=== PATIENT | female | born 1950 | race African-American/Black ===

== ENCOUNTER 2016-06-24 22:51 | Emergency (ER) | payer OTHER ==
[~2016-06-24] VITALS: Ht 180.3 cm; Wt 74.8 kg
[2016-06-24] MEDS ORDERED: FENTANYL PF 100 MCG/2 ML VIAL. IV PRN (23:15)
[2016-06-24] MEDS ORDERED: IV NORMAL SALINE 1000ML BAG 1,000 ML IV SCH (23:15)
[2016-06-24] MEDS ORDERED: ONDANSETRON PF 4 MG/2 ML VIAL. IV ONE (23:15)
--- NOTE | 2016-06-24 23:16 | PHYS DOC ---
Past Medical History Past Medical History: Arthritis Past Surgical History: No Surgical History Alcohol Use: None Drug Use: None Adult General Chief Complaint Chief Complaint: HYPERTENSION HPI HPI Patient is a 65 year old female who presents with complaint of shortness breath and cough. Patient states that she is a cough and nasal congestion for approximately 3 weeks. Patient states that her symptoms started getting worse tonight. Patient also noted that she had watering of her eyes, nausea, vomiting , and lower abdominal pain. The patient was brought to the emergency department by EMS who noted initially that the patient's blood pressure was 243/140. Patient's blood pressure has decreased to 166/99 at triage. Patient states that she has been having chills but denies fevers. Patient has had productive cough of brown sputum. Patient states that she is having soreness along the sides of her neck and bilateral shoulders and rates her pain currently as 9 out of 10. Patient has not taken any medications to help with symptoms at this time. Review of Systems Review of Systems Constitutional: Chills [] Eyes: Denies change in visual acuity, redness, or eye pain [] HENT: Nasal congestion, sore throat [] Respiratory: Cough, shortness of breath [] Cardiovascular: Chest pain [] GI: Abdominal pain, nausea, vomiting, denies bloody stools or diarrhea [] : Denies dysuria or hematuria [] Musculoskeletal: Neck and bilateral shoulder pain [] Integument: Denies rash or skin lesions [] Neurologic: Denies headache, focal weakness or sensory changes [] Endocrine: Denies polyuria or polydipsia [] Current Medications Current Medications Current Medications Medications (Trade) Dose Ordered Sig/Andrew Start Time Stop Time Status Last Admin Dose Admin Fentanyl Citrate (Fentanyl 2ml Vial) 50 mcg PRN Q15MIN PRN 06/24/16 23:15 06/25/16 23:14 06/24/16 23:23 50 MCG Ondansetron HCl (Zofran) 4 mg 1X ONCE 06/24/16 23:15 06/24/16 23:16 DC 06/24/16 23:23 4 MG Sodium Chloride (Iv Sodium Chloride 0.9% 1000ml Bag) 1,000 ml @ 1,000 mls/hr Q1H 06/24/16 23:15 06/25/16 00:14 06/24/16 23:23 1,000 MLS/HR Allergies Allergies Allergies Coded Allergies Type Severity Reaction Last Updated Verified tramadol Allergy Unknown 06/24/16 Yes Physical Exam Physical Exam Constitutional: Alert, afebrile, appears ill. [] HENT: Normocephalic, atraumatic, bilateral external ears normal, oropharynx moist, no oral exudates, nasal mucosal edema. [] Eyes: PERRLA, EOMI, conjunctiva normal, no discharge. [] Neck: Normal range of motion, bilateral paraspinous muscle tenderness to palpation, supple, no stridor. [] Cardiovascular: Tachycardia, regular rhythm, no murmur [] Lungs & Thorax: None restricted air movement bilaterally, no wheezes, no rales [ ] Abdomen: Bowel sounds normal, soft, periumbilical and right upper and lower quadrant tenderness to palpation, no masses, no pulsatile masses. [] Skin: Warm, dry, no erythema, no rash. [] Back: No tenderness, no CVA tenderness. [] Extremities: No tenderness, no cyanosis, no clubbing, ROM intact, no edema. [] Neurologic: Alert and oriented X 3, normal motor function, normal sensory function, no focal deficits noted. [] Current Patient Data Vital Signs Vital Signs Date Time Temp Pulse Resp B/P Pulse Ox O2 Delivery O2 Flow Rate FiO2 06/24/16 23:48 92 20 175/98 100 Room Air 06/24/16 22:52 98.4 98.4 Lab Values Laboratory Tests Test 06/24/16 23:15 White Blood Count 13.2x10^3/uL (4.0-11.0) H Red Blood Count 4.70x10^6/uL (3.50-5.40) Hemoglobin 14.1g/dL (12.0-15.5) Hematocrit 42.5% (36.0-47.0) Mean Corpuscular Volume 90fL (79-100) Mean Corpuscular Hemoglobin 30pg (25-35) Mean Corpuscular Hemoglobin Concent 33g/dL (31-37) Red Cell Distribution Width 14.3% (11.5-14.5) Platelet Count 277x10^3/uL (140-400) Neutrophils (%) (Auto) 73% (31-73) Lymphocytes (%) (Auto) 18% (24-48) L Monocytes (%) (Auto) 7% (0-9) Eosinophils (%) (Auto) 1% (0-3) Basophils (%) (Auto) 0% (0-3) Neutrophils # (Auto) 9.7x10^3uL (1.8-7.7) H Lymphocytes # (Auto) 2.4x10^3/uL (1.0-4.8) Monocytes # (Auto) 1.0x10^3/uL (0.0-1.1) Eosinophils # (Auto) 0.1x10^3/uL (0.0-0.7) Basophils # (Auto) 0.0x10^3/uL (0.0-0.2) Sodium Level 139mmol/L (136-145) Potassium Level 3.1mmol/L (3.5-5.1) L Chloride Level 99mmol/L (98-107) Carbon Dioxide Level 26mmol/L (21-32) Anion Gap 14 (6-14) Blood Urea Nitrogen 13mg/dL (7-20) Creatinine 0.9mg/dL (0.6-1.0) Estimated GFR (Cockcroft-Gault) 76.5 BUN/Creatinine Ratio 14 (6-20) Glucose Level 268mg/dL (70-99) H Lactic Acid Level 1.5mmol/L (0.4-2.0) Calcium Level 9.1mg/dL (8.5-10.1) Total Bilirubin 0.5mg/dL (0.2-1.0) Aspartate Amino Transferase (AST) 30U/L (15-37) Alanine Aminotransferase (ALT) 29U/L (14-59) Alkaline Phosphatase 198U/L (46-116) H Troponin I Quantitative < 0.017ng/mL (0.000-0.055) Total Protein 7.5g/dL (6.4-8.2) Albumin 4.1g/dL (3.4-5.0) Albumin/Globulin Ratio 1.2 (1.0-1.7) Laboratory Tests 06/24/16 23:15 Laboratory Tests 06/24/16 23:15 EKG EKG Interpreted by me: Heart rate 106, sinus tachycardia, normal intervals, normal axis, no acute ST/T-wave abnormalities present [] Radiology/Procedures Radiology/Procedures One view AP chest x-ray interpreted by me: No infiltrate, no effusions, normal cardiac silhouette [] Course & Med Decision Making Course & Med Decision Making Pertinent Labs and Imaging studies reviewed. (See chart for details) Patient was given IV fluids, Zofran, and fentanyl. Patient found to have elevated blood sugar of 268. Patient does not report history of diabetes. Due to significantly elevated blood sugar I suspect the patient is a type II diabetic. The patient's heart rate otherwise has improved with IV fluids. The patient's respiratory symptoms are likely a combination of seasonal allergies and possible viral illness. Speaking with the patient, I recommended that the patient started on metformin treatment for her blood sugar. Patient states that her blood pressure was checked 2 weeks ago and she was told that it was not elevated at that time. I advised that the patient continue to monitor her blood pressure and have this followed up as outpatient. The patient will be provided with Randolph to help with pain from arthritis. Strongly recommended that patient follow-up with your primary doctor in the next 1-2 weeks. Advised return to emergency department for any worsening symptoms. Patient voiced understanding and in agreement with treatment plan. Dragon Disclaimer Dragon Disclaimer This electronic medical record was generated, in whole or in part, using a voice recognition dictation system. Departure Departure Impression: Primary Impression: Hyperglycemia Additional Impressions: Nasal congestion Seasonal allergies Hypertension Arthritis Dehydration Disposition: 01 HOME, SELF-CARE Condition: IMPROVED Referrals: NO PCP (PCP) Patient Instructions: Allergic Rhinitis, Arthritis, Nonspecific, Hyperglycemia , Hypertension Additional Instructions: Follow-up with your primary doctor in 1 week. Return to the emergency department for any worsening symptoms. Scripts Hydrocodone/Apap 5-325 (Randolph 5-325 Tablet)1 Each Tablet1-2 Tab PO Q4-6HRS PRN PAIN #20 TAB Prov:EARL SÁNCHEZ MD 06/25/16 Metformin Hcl 500 Mg [id number] Mg PO BIDWMEALS ANTI-DIABETIC #60 TAB Ref 0 Prov:EARL SÁNCHEZ MD 06/25/16 Problem Qualifiers Additional Impressions: Seasonal allergies Allergic rhinitis trigger: unspecified Qualified Code: J30.2 - Other seasonal allergic rhinitis Hypertension Hypertension type: essential hypertension Qualified Code: I10 - Essential ( primary) hypertension EARL SÁNCHEZ MD Jun 24, 2016 23:16
[2016-06-24 23:26] LABS: BASO % 0 % (0-3); EOS % 1 % (0-3); HEMATOCRIT 42.5 % (36.0-47.0); HEMOGLOBIN 14.1 g/dL (12.0-15.5); LYMPH # 2.4 x10^3/uL (1.0-4.8); LYMPH % 18 % (24-48); MEAN CORPUSCULAR HEMOGLOBIN 30 pg (25-35); MEAN CORPUSCULAR HGB CONC 33 g/dL (31-37); MEAN CORPUSCULAR VOLUME 90 fL (79-100); MONO % 7 % (0-9); NEUT % 73 % (31-73); PLATELET COUNT 277 x10^3/uL (140-400); RED CELL DISTRIBUTION WIDTH 14.3 % (11.5-14.5); WHITE BLOOD COUNT 13.2 x10^3/uL (4.0-11.0)
[2016-06-24 23:39] LABS: CALCIUM 9.1 mg/dL (8.5-10.1); CREATININE 0.9 mg/dL (0.6-1.0); GFR 76.5; POTASSIUM 3.1 mmol/L (3.5-5.1)
[2016-06-24 23:45] LABS: ALBUMIN 4.1 g/dL (3.4-5.0); ALBUMIN/GLOBULIN RATIO 1.2 (1.0-1.7); TOTAL BILIRUBIN 0.5 mg/dL (0.2-1.0); TOTAL PROTEIN 7.5 g/dL (6.4-8.2)
[2016-06-25 00:14] LABS: CKMB INDEX 1.4 % (0-4); CKMB MASS 9.4 ng/mL (0.0-3.6)
[2016-06-25] MEDS ORDERED: HYDR-971 PO (00:15)
[2016-06-25] MEDS ORDERED: METF500T4 PO (00:15)
[2016-06-25] MEDS ORDERED: HYDROCODONE/APAP 5/325MG TABLET. PO ONE (00:30)
[2016-06-25] MEDS ORDERED: POTASSIUM CHLORIDE 20 MEQ TABLET.ER. PO ONE (00:30)
[2016-06-25 00:35] VITALS: BP 186/101
--- NOTE | 2016-06-25 01:24 | EKG ---
[facility] [address] [place] [address] Test Date: 2016-06-24 Test Time: 23:24:23 Pat Name: NIDIA COCHRAN Department: Room: Gender: F Payroll Consultant: : [id number] Requested By: EARL SÁNCHEZ Order Number: [id number] Reading MD: Sukhi Godwin Measurements Intervals [place] Rate: 106 P: 16 NH: 162 QRS: 29 QRSD: 88 T: 42 QT: 346 QTc: 461 Interpretive Statements SINUS TACHYCARDIA PRIOR SOM-SEPTAL INFARCT NON-SPECIFIC ST/T CHANGES Electronically Signed On 06-26-2016 8:19:10 CDT by Sukhi Godwin
--- NOTE | 2016-06-25 08:18 | RAD ---
Portable chest, 06/24/2016: History: Cough, shortness of breath The heart size and pulmonary vascularity are normal. No pulmonary infiltrates are seen. There is no evidence of pleural fluid. Mild spurring is present in the spine. IMPRESSION: No acute cardiopulmonary abnormality is detected.
== END 2016-06-25 00:45 | disposition home or self-care (01) ==
LOC: ER 23:51
DX: J30.2 Other seasonal allergic rhinitis (principal); R73.9 Hyperglycemia, unspecified; I10 Essential (primary) hypertension; M19.90 Unspecified osteoarthritis, unspecified site; E86.0 Dehydration; M25.511 Pain in right shoulder; R11.2 Nausea with vomiting, unspecified; R10.33 Periumbilical pain; R10.11 Right upper quadrant pain; R10.31 Right lower quadrant pain; Z88.6 Allergy status to analgesic agent
CPT/HCPCS: 36415; 71010; 80053; 82553; 83605; 83880; 84484; 85027; 87040; 93005; 96361; 96374; 96375; 99285; J2405; J3010; J7030

== ENCOUNTER 2018-09-20 18:54 | Emergency (ER) | payer MEDICAID, OTHER ==
[~2018-09-20] VITALS: Ht 180.3 cm; Wt 72.6 kg
[~2018-09-20 18:54] MED LIST: HYDR-3164 PO; METF500T16 PO
[2018-09-20 19:36] VITALS: BP 158/76
[2018-09-20] MEDS ORDERED: LIDOCAINE 1% PF 2 ML VIAL. INJ ONE (20:30)
[2018-09-20] MEDS ORDERED: DIPHTH,PERTUSS(ACELL),TET TOX 0.5 ML DISP.SYRIN. VAX IM ONE (20:30)
--- NOTE | 2018-09-20 21:21 | PHYS DOC ---
Past Medical History Past Medical History: Hypertension Additional Past Medical Histor: CARPAL TUNNEL Past Surgical History: Other Additional Past Surgical Histo: HERNIA Alcohol Use: None Drug Use: None Adult General Chief Complaint Chief Complaint: LACERATION/AVULSION HPI HPI Patient is a 68 year old [f__sex] who presents with [] Review of Systems Review of Systems Constitutional: Denies fever or chills [] Eyes: Denies change in visual acuity, redness, or eye pain [] HENT: Denies nasal congestion or sore throat [] Respiratory: Denies cough or shortness of breath [] Cardiovascular: No additional information not addressed in HPI [] GI: Denies abdominal pain, nausea, vomiting, bloody stools or diarrhea [] : Denies dysuria or hematuria [] Musculoskeletal: Denies back pain or joint pain [] Integument: Denies rash or skin lesions [] Neurologic: Denies headache, focal weakness or sensory changes [] Endocrine: Denies polyuria or polydipsia [] All other systems were reviewed and found to be within normal limits, except as documented in this note. Current Medications Current Medications Current Medications Medications (Trade) Dose Ordered Sig/Andrew Start Time Stop Time Status Last Admin Dose Admin Diphtheria/ Tetanus/Acell Pertussis (Boostrix) 0.5 ml ONCE ONCE 09/20/18 20:30 09/20/18 20:31 DC 09/20/18 20:50 0.5 ML Lidocaine HCl (Xylocaine-Mpf 1% 2ml Vial) 4 ml 1X ONCE 09/20/18 20:30 09/20/18 20:31 DC 09/20/18 20:49 4 ML Allergies Allergies Allergies Coded Allergies Type Severity Reaction Last Updated Verified tramadol Allergy Unknown 06/24/16 Yes Physical Exam Physical Exam Constitutional: Well developed, well nourished, no acute distress, non-toxic appearance. [] HENT: Normocephalic, atraumatic, bilateral external ears normal, oropharynx moist, no oral exudates, nose normal. [] Eyes: PERRLA, EOMI, conjunctiva normal, no discharge. [] Neck: Normal range of motion, no tenderness, supple, no stridor. [] Cardiovascular:Heart rate regular rhythm, no murmur [] Lungs & Thorax: Bilateral breath sounds clear to auscultation [] Abdomen: Bowel sounds normal, soft, no tenderness, no masses, no pulsatile masses. [] Skin: Warm, dry, no erythema, no rash. [] Back: No tenderness, no CVA tenderness. [] Extremities: No tenderness, no cyanosis, no clubbing, ROM intact, no edema. [] Neurologic: Alert and oriented X 3, normal motor function, normal sensory function, no focal deficits noted. [] Psychologic: Affect normal, judgement normal, mood normal. [] Current Patient Data Vital Signs Vital Signs Date Time Temp Pulse Resp B/P (MAP) Pulse Ox O2 Delivery O2 Flow Rate FiO2 09/20/18 19:36 98.4 105 18 158/76 (103) 100 Room Air 98.4 EKG EKG [] Radiology/Procedures Radiology/Procedures Laceration Repair by me: 2100 Anesthesia: 1% lidocaine locally 3mL Location: Distal tip lt index finger palm surface no nail bed injury Tendon/Joint/Nerves: No injury- flexor tendon intact against resistance Foreign body: None detected after copious irrigation and exploration Technique: Simple Interrupted Sutures 5.0 #6 Complexity: No subcutaneous sutures/edge excision Post Closure Length: 4 cm Patient's bleeding was easily controlled in the department and there is no indication of anemia. No evidence of compartment syndrome, neurologic injury, vascular injury, open joint, tendon laceration, or foreign body. Patient is appropriate for outpatient follow up. 48 hour wound check. Scar minimization instructions given. Course & Med Decision Making Course & Med Decision Making Pertinent Labs and Imaging studies reviewed. (See chart for details) [] Dragon Disclaimer Dragon Disclaimer This electronic medical record was generated, in whole or in part, using a voice recognition dictation system. Departure Departure Impression: Primary Impression: Laceration Additional Impression: Rib pain on left side Disposition: 01 HOME, SELF-CARE Condition: STABLE Referrals: UNKNOWN PCP NAME (PCP) Patient Instructions: Laceration Care, Adult, Sutured Wound Care Additional Instructions: Wear the aluminum splint to protect the laceration. Monitor the wound for signs of infection- with any concerns have the wound reevaluated by her primary care physician. You will need your sutures removed in 7 days this can be done by your primary care physician. Tylenol and/or ibuprofen as needed for pain as directed on container. You had concerns regarding a fall a month ago and requested a chest x-ray there was no obvious displaced fractures or findings on the imaging. If symptoms persist follow-up with your primary care physician for reevaluation and further care. You were updated on her tetanus while in the ER. Problem Qualifiers DIXON HUTCIHNS APRN Sep 20, 2018 21:21
--- NOTE | 2018-09-21 07:46 | RAD ---
EXAM: PA and Lateral Views of the Chest DATE: 09/20/2018 8:16 PM INDICATION: Fall, 1 month ago, left-sided rib pain COMPARISON: 06/24/2016 FINDINGS: The heart is not enlarged. Mediastinal and hilar contours are stable. Emphysematous changes are seen. No lobar consolidation. No pleural effusion or pneumothorax. IMPRESSION: No evidence for acute cardiopulmonary process. Electronically signed by: Jeff Awan MD (09/21/2018 7:43 AM) [facility]
== END 2018-09-20 21:25 | disposition home or self-care (01) ==
LOC: ER 18:54
DX: S61.211A Laceration without foreign body of left index finger without damage to nail, initial encounter (principal); R07.81 Pleurodynia; I10 Essential (primary) hypertension; Z88.6 Allergy status to analgesic agent; W26.0XXA Contact with knife, initial encounter; Y93.89 Activity, other specified; Y92.89 Other specified places as the place of occurrence of the external cause; Y99.8 Other external cause status
CPT/HCPCS: 12002; 71046; 90471; 90715; 99284